=== PATIENT | male | born 1955 | race Caucasian/White ===

== ENCOUNTER 2022-09-17 11:37 | Outpatient (CLI) | payer OTHER ==
[~2022-09-17] VITALS: Ht 170.2 cm; Wt 88.0 kg
== END 2022-09-17 11:48 | disposition home or self-care (01) ==
LOC: LAB 11:37
PROVIDERS: ATTEND Urology
DX: I11.0 Hypertensive heart disease with heart failure (principal); N26.1 Atrophy of kidney (terminal)

== ENCOUNTER 2022-09-23 06:03 | Day surgery (SDC) | payer OTHER ==
[~2022-09-23 06:03] MED LIST: ATACAND32 MG PO; GLUMETZA1000 MG PO; SYNTH PO
== END 2022-09-23 16:15 | disposition home or self-care (01) ==
LOC: CIR.AMB 06:03
PROVIDERS: ATTEND Urology
DX: N20.1 Calculus of ureter (principal); Z88.0 Allergy status to penicillin; Z88.6 Allergy status to analgesic agent; Z20.822 Contact with and (suspected) exposure to COVID-19; I10 Essential (primary) hypertension; E11.9 Type 2 diabetes mellitus without complications; E03.9 Hypothyroidism, unspecified; Z79.84 Long term (current) use of oral hypoglycemic drugs

== ENCOUNTER 2022-09-29 09:28 | Outpatient (CLI) | payer OTHER | END 2022-09-29 09:33 | disposition home or self-care (01) | LOC: RAD 09:28 | PROVIDERS: ATTEND Urology | DX: N20.1 Calculus of ureter (principal) ==

== ENCOUNTER 2023-01-22 15:34 | Outpatient (CLI) | payer OTHER | END 2023-01-22 15:42 | disposition home or self-care (01) | LOC: RAD 15:34 | PROVIDERS: ATTEND Urology | DX: N20.0 Calculus of kidney (principal) ==

== ENCOUNTER 2023-08-23 10:39 | Outpatient (CLI) | payer OTHER | END 2023-08-23 10:44 | disposition home or self-care (01) | LOC: RAD 10:39 | PROVIDERS: ATTEND Urology | DX: R31.0 Gross hematuria (principal); N20.0 Calculus of kidney ==